=== PATIENT | male | born 1945 | race Caucasian/White ===

== ENCOUNTER 2019-04-08 15:41 | Emergency (ER) | payer MEDICARE, SELFPAY ==
[2019-04-08 15:42] VITALS: BP 115/66; PULSE 63; RESP 16; TEMP 37.5; O2SAT 96; BMI 28.8
--- NOTE | 2019-04-08 16:09 | CT_ITS ---
STUDY: CT ABDOMEN AND PELVIS WITHOUT CONTRAST REASON FOR EXAM: Male, 73 years old. Right lower quadrant pain since colonoscopy. RADIATION DOSAGE (If Supplied By Facility): CTDIvol = ( 12.85 ) mGy, DLP = ( 636.76 ) mGycm TECHNIQUE: Transaxial images were obtained from the dome of the diaphragm to the symphysis pubis without oral contrast, and without intravenous contrast. Sagittal and coronal images were reconstructed. Individualized dose optimization techniques were used for this CT. COMPARISON: None. FINDINGS: There is minimal dependent atelectasis within the lower lobes. There is a 3 mm left lower lobe pulmonary nodule. There are coronary artery calcifications present. The lack of intravenous contrast limits evaluation of solid visceral organs. There are too small to characterize low-attenuation foci within the liver. Normal gallbladder and extrahepatic biliary system. Normal spleen. Normal pancreas. Normal bilateral adrenal glands. There is a 2.2 cm right renal cyst. There is a 8.9 x 7.4 x 7.9 cm minimally complex left renal cyst that contains thin peripheral calcifications. Normal left kidney. Normal visualized stomach. Normal small intestine. Normal colon. The appendix is visualized and appears normal. There is diffuse atherosclerotic calcification of the abdominal aorta, without a demonstrated aneurysm. Normal inferior vena cava. Normal retroperitoneum. Normal urinary bladder. There is a small umbilical hernia containing fat. There are diffuse degenerative changes of the visualized lumbar spine. CT/Abdomen/Pelvis without Cont IMPRESSION: No acute intra-abdominal process. Minimally complex 8.9 x 7.4 x 7.9 cm left renal cyst. Atherosclerosis. Electronically Signed: Genny Mitchell MD at 17:11 EST Tel , Service support ,
--- NOTE | 2019-04-08 16:15 | ED.DCSUM_ITS ---
- ER Visit Summary Date of Service: 04/08/19 Chief Complaint: Abdominal pain, bright red blood per rectum History of Present Illness: The patient is a 73 M who has abdominal pain and had some bright red blood per rectum today. He had a colonoscopy [address] Blake. He states ever since the procedure he has had pain in the right upper quadrant. He was told that he had a polyp removed from this area and that is why he had pain. Today he noticed bright red blood in the toilet 2 times. He is on no blood thinning medications. He does feel lightheaded. He has no nausea or vomiting. He denies any urinary symptoms. Physical Examination: Vital signs reviewed. HEENT exam unremarkable. Heart is regular rate and rhythm without murmurs. Lungs are clear to auscultation. Abdomen is soft with tenderness in the right upper quadrant. There is no guarding or rebound tenderness. Rectal exam reveals no hemorrhoids. No active bleeding. Extremities reveal no edema. Skin exam normal. Neurologic exam normal. Test Results: Hemoglobin 12.1. Labs normal. FOBT positive. CAT scan reveals a renal cyst but no other acute findings Emergency Department Course and Treatment: The patient's blood pressure and heart rate have been normal. His hemoglobin is 12.1. He had no episodes of any large bowel movement of blood here. He had some scant blood on the rectal exam. I discussed with Dr. Skinner, on-call for Dr. Blake. He believes the patient can follow-up on Thursday with Dr. Blake. He was going to pass along a note to follow-up with him. Patient denies any orthostatic symptoms here. Again, his v ital signs have been stable. He has no active bleeding. I feel he can be discharged to follow-up. Treatment Plan: [] Disposition: Discharge Impression: Right red blood per rectum, recent colonoscopy This note was generated with [employer] dictation software. It may contain incorrect words, spelling, and punctuation that were not noted in review of the chart prior to signing ED Disposition - Plan for ED Patient: Referrals: Anais Flores DO [Primary Care Provider] -
[2019-04-08] MEDS: 0.9% Normal Saline 1,000 ML 1000 ML IV (16:40)
[2019-04-08] MEDS: Morphine 4 MG/ML Syringe IV (16:41)
[2019-04-08] MEDS: Ondansetron 4 MG/2 ML Vial IV (16:41)
[2019-04-08 16:45] LABS: Absolute Lymphocyte Count 0.82 X10^3/uL (0.83-4.51); Basophil# 0.03 X10^3/uL; Basophil% 0.4 % (0-1); Eosinophil# 0.24 X10^3/uL; Eosinophils% 3.1 % (0-5); Hemoglobin 12.1 g/dL (13.0-16.5); Lymphocyte # 0.82 X10^3/ul (4.0); Lymphocyte % 10.6 % (19-41); Mean Corp Hgb Conc 34.6 g/dL (32-36); Mean Corpuscular Hgb 30.9 pg (27.0-32.0); Mean Corpuscular Volume 89.5 fL (80-94); Mean Platelet Vol. 11.3 fl (6.2-12.0); Monocyte# 0.59 X10^3/uL; Monocyte% 7.6 % (0-10); NRBC Flagged by Analyzer 0 % (0-5); Neutrophil # 6.01 X10^3/uL (2.7-7.7); Neutrophil % 77.8 % (47-70); Platelet Count 196 K/mm3 (150-450); RBC Distribution Width CV 12.7 % (11.6-14.6); RBC Distribution Width SD 41.3 fl (35.1-43.9); Red Blood Count 3.91 M/mm3 (4.6-6.2); White Blood Count 7.7 K/mm3 (4.4-11.0)
[2019-04-08 16:47] VITALS: BP 126/65; PULSE 80; RESP 19; O2SAT 97
[2019-04-08 17:03] LABS: ALB/GLOB Ratio 1.2 RATIO (0.9-2.4); AST(SGOT) 22 U/L (15-37); Alanine Aminotransfer ALT/SGPT 51 U/L (16-61); Albumin, Serum 3.3 g/dL (3.2-5.0); Alkaline Phosphatase 67 U/L (45-117); Anion Gap 4 (5-15); BUN 17 mg/dL (7-18); BUN/Creat Ratio 19.5 RATIO (10-20); Calcium,Total 8.6 mg/dL (8.5-10.1); Chloride 105 mmol/L (98-107); Creatinine, Serum 0.87 mg/dL (0.70-1.30); EST Glomerular Filtration Rate 92 mL/min (>60); Est Glom Filt Rate - Afr Amer 111 mL/min (>60); Estimated Creatinine Clearance 70.28 ml/min; Globulin 2.7 g/dL (2.2-4.2); Glucose 105 mg/dL (74-106); Potassium 3.8 mmol/L (3.5-5.1); Sodium Level 139 mmol/L (136-145)
[2019-04-08 17:06] VITALS: BP 119/60; PULSE 74; RESP 17; O2SAT 94
--- NOTE | 2019-04-08 17:27 | ED.RN ---
LAB WITH POSITIVE OCCULT BLOOD RESULT. DR KRUEGER NOTIFIED AT THIS TIME.
--- NOTE | 2019-04-08 17:56 | ED.DEP ---
ED Disposition - Plan for ED Patient: Disposition: Home or Assisted Living Instructions: RECTAL BLEED, Stable Referrals: Anais Flores DO [Primary Care Provider] -
[2019-04-08 18:03] VITALS: BP 139/65; PULSE 61; O2SAT 93
== END 2019-04-08 18:08 | disposition home or self-care (01) ==
PROVIDERS: Emergency Provider Emergency Medicine; Family Provider Internal Medicine; PCP Internal Medicine
DX: K62.5 Hemorrhage of anus and rectum (principal); R10.11 Right upper quadrant pain; N28.1 Cyst of kidney, acquired; Z98.890 Other specified postprocedural states
CPT/HCPCS: 74176; 80053; 82274; 85025; 86850; 86900; 86901; 96361; 96374; 96375; 99285; J7030; A4216; J2405

== ENCOUNTER → 2019-09-22 14:50 | Outpatient (CLI) | payer MEDICARE, SELFPAY ==
--- NOTE | 2019-09-22 14:54 | CT_ITS ---
STUDY: CT BRAIN WITH AND WITHOUT CONTRAST REASON FOR EXAM: Male, 74 years old. RT OCCIPITAL PAIN X 2 WKS RADIATION DOSAGE (If Supplied By Facility): CTDIvol = ( ) mGy, DLP = ( 4529.85 ) mGycm TECHNIQUE: Transaxial CT imaging of the brain was performed pre and post contrast administration. The examination was performed with intravenous administration of IV 100mL Isovue-300. Individualized dose optimization techniques were used for this CT. COMPARISON: None. FINDINGS: Normal soft tissue structures. Normal calvarium. Mild calcification of cavernous carotids and vertebrobasilar dolichoectasia consistent with systemic hypertension Mild atrophy and periventricular white matter ischemic changes.. Normal basal ganglia and thalami. Normal brainstem. Normal cerebellum. There is no intracranial hemorrhage. There are no findings of an acute ischemic infarction. No enhancing lesions are seen following contrast administration. Normal visualized paranasal sinuses. CT/Brain/Head W/WO Contrast IMPRESSION: Mild atrophy and periventricular white matter ischemic change. No evidence for obstructive hydrocephalus mass or acute bleed Electronically Signed: Ghassan Moses MD at 16:06 EDT , Service support ,
--- NOTE | 2019-09-22 14:54 | CT_ITS ---
STUDY: CT ABDOMEN AND PELVIS WITH AND WITHOUT CONTRAST REASON FOR EXAM: Male, 74 years old. COMPLEX RENAL CYST RADIATION DOSAGE (If Supplied By Facility): CTDIvol = ( ) mGy, DLP = ( 4529.85 ) mGycm TECHNIQUE: Transaxial images were obtained from the dome of the diaphragm to the symphysis pubis without oral contrast. IV 100mL Isovue-300 was administered. Sagittal and coronal images were reconstructed. Individualized dose optimization techniques were used for this CT. COMPARISON: April 08, 2019 FINDINGS: There is minor interstitial thickening at the lung bases The visualized portions of the heart are within normal limits. Liver is normal size. There is a small hemangioma in the right lobe posterior segment. Bile ducts are not dilated. Normal gallbladder and extrahepatic biliary system. Normal spleen. Normal pancreas. Normal bilateral adrenal glands. No evidence for renal obstruction or ureteral calculus. Single cortical cyst in the right kidney measuring 2.6 x 2.37 m There is a large parapelvic cyst in left kidney measuring 9.68 x 8.04 x 8.47 cm demonstrating foci of thin rim calcification. Normal visualized stomach. Normal small intestine. Diffuse fecal retention noted within the colon.. The appendix is visualized and appears normal. Atherosclerotic changes of the aorta without evidence for aneurysm.. Normal inferior vena cava. Normal retroperitoneum. Normal urinary bladder. Nonspecific enlargement of the prostate and seminal vesicles encroaching upon the base of the bladder. Small bilateral fat-containing inguinal hernias larger on the left.. Lumbar spine demonstrates mild spondylosis CT/CT Abd/Pelvis W/WO Contrast IMPRESSION: Large complex cortical cyst in left kidney measuring 1.68 x 8.04 x 8.47 cm Small simple cortical cyst in the right kidney No acute abnormalities with other findings as above Electronically Signed: Ghassan Moses MD at 16:13 EDT , Service support ,
[2019-09-22 15:21] LABS: CREATININE FINGERSTICK 0.8 mg/dL (0.70-1.30)
== END ==
PROVIDERS: PCP Internal Medicine; Visit Provider Nurse Practitioner
DX: R51 Headache (principal); N28.1 Cyst of kidney, acquired; Z68.27 Body mass index [BMI] 27.0-27.9, adult
CPT/HCPCS: 70470; 74178; Q9967

== ENCOUNTER → 2019-10-07 09:43 | Outpatient (CLI) | payer MEDICARE, SELFPAY ==
--- NOTE | 2019-10-07 09:47 | MRI_ITS ---
STUDY: MRI BRAIN WITHOUT CONTRAST REASON FOR EXAM: Male, 74 years old. throbbing headache, rt side of head x 5 weeks TECHNIQUE: Standardized multiplanar fat and water weighted pulse sequences were obtained. COMPARISON: CT 09/22/2019 FINDINGS: There is mild cerebral atrophy with widening of the extra-axial spaces and ventricular dilatation. Normal white matter tracts of the supratentorial brain. There is no evidence for recent intracranial ischemia or other cause of cytotoxic edema on diffusion weighted imaging (DWI). Normal T2* images of the brain without demonstrated susceptibility artifact. There is no demonstrated hemosiderin stain. Normal bilateral basal ganglia. Normal thalami. There is no extra-axial fluid accumulation. Normal flow voids within the major intracranial circulation suggesting patency by spin echo criteria. Normal sella turcica, pituitary gland, infundibular stalk, optic chiasm and hypothalamus. Normal tectal plate and pineal gland. Normal midbrain, zach and medulla. Normal cerebellum. Normal basal cisterns. Normal bilateral temporal bones. Normal bilateral internal auditory canals. No demonstrated orbital abnormality, within the constraints of a routine brain study. Normal visualized paranasal sinuses. Normal calvarium and skull base. Normal visualized soft tissue structures. Normal visualized upper cervical spine. MRI/Brain without Contrast IMPRESSION: Involutional changes of the brain, as described above. Electronically Signed: Bassem Cooley MD at 10:51 EDT Tel , Service support ,
--- NOTE | 2019-10-07 10:57 | CDU_ITS ---
Reason For Study: carotid artery calcification Rt. Velocities/BP Lt. Velocities/BP Prox CCA 108.9/17.5 cm/sec. Prox CCA 102.7/20.4 cm/sec. Mid CCA 97.9/19.4 cm/sec. Mid CCA 87.9/20.4 cm/sec. Dist CCA 77.8/21.2 cm/sec. Dist CCA 81.8/17.9 cm/sec. Prox ICA 91.1/23.6 cm/sec. Prox ICA 66.2//18.3 cm/sec. Mid ICA 89.3/30.9 cm/sec. Mid ICA 87.1/26.9 cm/sec. Dist ICA 102.1/29.0 cm/sec. Dist ICA 99.4/29.4 cm/sec. Rt. ICA/CCA = 102.1/108.9=0.94. Lt. ICA/CCA = 99.4/102.7=0.97. Prox ECA 143.6/15.7 cm/sec. Prox ECA 119.3/13.3 cm/sec. Rt. Vert. 61.4/19.7 cm/sec. Lt. Vert. 71.1/18.3 cm/sec. Right Extracranial There is intimal thickening but no significant atherosclerotic plaque noted in the right common carotid artery. There is homogeneous, smooth atherosclerotic plaque noted in the right internal carotid artery. There is intimal thickening but no significant atherosclerotic plaque noted in the right external carotid artery. Antegrade flow is noted in the right vertebral artery. Left Extracranial There is homogeneous, smooth atherosclerotic plaque noted in the left common carotid artery. There is intimal thickening but no significant atherosclerotic plaque noted in the left internal carotid artery. There is intimal thickening but no significant atherosclerotic plaque noted in the left external carotid artery. The left external carotid artery is not well visualized. Antegrade flow is noted in the left vertebral artery. Interpretation Summary Mild (<50%) stenosis right extracranial internal carotid. No significant atherosclerotic plaque or stenosis noted in the left internal carotid artery. Flow within the vertebral arteries is antegrade bilaterally. Ordering Physician: Fide Fishman Referring Physician: Anais Flores Performed By: Evy Shafer, JES, RVT
== END ==
PROVIDERS: PCP Internal Medicine; Visit Provider Nurse Practitioner
DX: I65.1 Occlusion and stenosis of basilar artery (principal); I65.23 Occlusion and stenosis of bilateral carotid arteries
CPT/HCPCS: 70551; 93880

== ENCOUNTER → 2019-10-11 14:30 | Outpatient (CLI) | payer MEDICARE, SELFPAY ==
[2019-10-12 08:24] LABS: PSA,Total- Diagnostic 8.97 ng/mL (0.0-4.0)
== END ==
PROVIDERS: PCP Internal Medicine; Referring Provider Nurse Practitioner Adult Health; Visit Provider Nurse Practitioner Adult Health
DX: C61 Malignant neoplasm of prostate (principal)
CPT/HCPCS: 36415; 84153; G0103

== ENCOUNTER → 2019-11-29 15:46 | Outpatient (CLI) | payer MEDICARE, SELFPAY ==
--- NOTE | 2019-11-29 | PROSBIL_PTH ---
PATIENT: JASON VERDUZCO LOC: [facility] U#:[id number] AGE/SX: 79/M ROOM: RE11/29/[address]: Dr. Elvin Acevedo MD : 1945 BED: DIS: SPEC #: [id number] RECD: 11/29/19 12:12 STATUS: ESTEFANIA REFamilia #: [id number] CHAI: 11/29/19 00:[address]: Elvin Acevedo DEPT: SURGICAL PATHOLOGY RECD BY: Arron Hamm ENTERED: 11/30/19 12:12 SP TYPE: PROST BX GABINO DR: Dr. Anais Flores DO Tissues: A - PROSTATE RIGHT B - PROSTATE RIGHT C - PROSTATE RIGHT D - PROSTATE LEFT E - PROSTATE LEFT F - PROSTATE LEFT Procedures: PROSTATE BX HEADER OPERATION: Prostate biopsy PRE-OP DIAGNOSIS: Elevated PSA TISSUE SUBMITTED: A - Right apex, B - Right mid, C - Right base, D - Left apex, E - Left mid, F - Left base MICROSCOPIC DIAGNOSIS A. Right prostate, apex, core biopsy: Prostatic adenocarcinoma. [place] grade: 3+4=7 Number of cores involved: 1/2 Proportion of tissue involved: ~40% Perineural invasion: Present, focal Greatest tumor length: 0.7 cm Focal high-grade prostatic intraepithelial neoplasia (HGPIN). B. Right prostate, mid, core biopsy: Prostatic adenocarcinoma. [place] grade: 3+4=7 Number of cores involved: 2/2 Proportion of tissue involved: ~75-80% Perineural invasion: Present, frequent. Greatest tumor length: 0.8 cm Focal chronic inflammation. C. Right prostate, base, core biopsy: Prostatic adenocarcinoma. [place] grade: 3+4=7 Number of cores involved: 1/2 Proportion of tissue involved: ~10% Perineural invasion: Present, focal. Greatest tumor length: 0.7 cm, discontinuous Focal high-grade prostatic intraepithelial neoplasia (HGPIN). Focal chronic inflammation. See comment. D. Left prostate, apex, core biopsy: Two minute foci of prostatic adenocarcinoma. [place] grade: 3+3=6 Number of cores involved: 2/2 Proportion of tissue involved: <5% Perineural invasion: Not identified. Greatest tumor length: <0.1 cm See comment. E. Left prostate, mid, core biopsy: Prostatic adenocarcinoma. [place] grade: 3+3=6 Number of cores involved: 1/2 Proportion of tissue involved: ~15% Perineural invasion: Not identified. Greatest tumor length: 0.3 cm Focal mild chronic inflammation. F. Left prostate, base, core biopsy: Prostatic tissue, negative for malignancy. SJ:reji 12/01/19 COMMENT C. Focal tertiary pattern 5 is also noted. D. Immunohistochemistry ([id number]) supports the above diagnosis. Please make reference to previous specimen ([id number]) right prostate, mid and left prostate, apex with diagnosis of prostatic adenocarcinoma and right prostate, apex and left prostate, base, core biopsy with diagnosis of focal high-grade prostatic intraepithelial neoplasia. Case has been reviewed in consultation with Dr. Gomez who concurs with the above diagnosis. IDC:AM MICROSCOPIC DESCRIPTION Slides are reviewed. GROSS DESCRIPTION A - Received is one container designated prostate, right apex. The specimen consists of two elongated fragments of light paredes-white soft tissue each measuring 1 cm in length and 0.1 cm in diameter. The specimen is totally submitted in one cassette. B - Received is one container designated prostate, right mid. The specimen consists of two elongated fragments of light paredes-white soft tissue each measuring 1.5 cm in length and 0.1 cm in diameter. The specimen is totally submitted in one cassette. C - Received is one container designated prostate, right base. The specimen consists of two elongated fragments of light paredes-white soft tissue each measuring 1.5 cm in length and 0.1 cm in diameter. The specimen is totally submitted in one cassette. D - Received is one container designated prostate, left apex. The specimen consists of two elongated fragments of light paredes-white soft tissue each measuring 1 cm in length and 0.1 cm in diameter. The specimen is totally submitted in one cassette. E - Received is one container designated prostate, left mid. The specimen consists of two elongated fragments of light paredes-white soft tissue each measuring 1 cm in length and 0.1 cm in diameter. The specimen is totally submitted in one cassette. F - Received is one container designated prostate, left base. The specimen consists of two elongated fragments of light paredes-white soft tissue each measuring 1.5 cm in length and 0.1 cm in diameter. The specimen is totally submitted in one cassette. / AM:reji 11/30/19 TC:0 CPT: G0146
--- NOTE | 2019-11-29 | IMM_PTH ---
PATIENT: JASON VERDUZCO LOC: [facility] U#:[id number] AGE/SX: 79/M ROOM: RE11/29/[address]: Dr. Elvin Acevedo MD : 1945 BED: DIS: SPEC #: [id number] RECD: 12/01/19 13:02 STATUS: ESTEFANIA REFamilia #: [id number] CHAI: 11/29/19 00:[address]: Elvin Acevedo DEPT: IMMUNOHISTOCHEMISTRY RECD BY: Sena Fam ENTERED: 12/01/19 13:11 SP TYPE: IMMUNO OTHR DR: Dr. Anais Flores DO Tissues: D - PROSTATE LEFT Procedures: P40 (add) 34BE12 (initial) PHYSICIAN & INSTITUTION [place] [id number] SPECIMEN INFORMATION: Tissue Source: D - Left prostate, apex, core biopsy Clinical Info: Elevated PSA Specimen Number: [id number] CPT code: 73741, 65743 METHODOLOGY: Deparaffinized sections of prefer/formalin-fixed tissue or PAP/DQ stained slides are incubated with monoclonal/polyclonal antibodies/oligonucleotide probes. Localization is made via biotin free immunoperoxidase method. Appropriate controls are performed and reacted as expected. Results on target cell population are indicated in the following table: RESULTS: ANTIBODY / CLONE RESULT Block D P40 (BC28) negative 34BE12 (34BE12) negative These tests were developed and their performance characteristics determined by [facility]. They may not have been cleared or approved by the U.S. Food and Drug Administration. The FDA has determined that such clearance or approval is not necessary. The above immunohistochemical/dualISH markers are ordered and reviewed by the Pathologist. INTERPRETATION: D. Left prostate, apex, core biopsy: Two minute foci of adenocarcinoma. SJ:reji 12/02/19
== END ==
PROVIDERS: PCP Internal Medicine; Referring Provider Urology; Visit Provider Urology
DX: R97.20 Elevated prostate specific antigen [PSA] (principal)
CPT/HCPCS: 88305; 88341; 88342; G0416

== ENCOUNTER → 2019-12-30 11:00 | Outpatient (CLI) | payer MEDICARE, SELFPAY ==
[2020-02-02 09:26] LABS: Hematocrit 43.7 % (40-54); Hemoglobin 14.9 g/dL (13.0-16.5); Mean Corp Hgb Conc 34.1 g/dL (32-36); Mean Corpuscular Hgb 30.7 pg (27.0-32.0); Mean Corpuscular Volume 89.9 fL (80-94); Mean Platelet Vol. 10.5 fl (6.2-12.0); Platelet Count 206 K/mm3 (150-450); RBC Distribution Width CV 12.5 % (11.6-14.6); RBC Distribution Width SD 41.1 fl (35.1-43.9); Red Blood Count 4.86 M/mm3 (4.6-6.2); White Blood Count 5.3 K/mm3 (4.4-11.0)
== END ==
PROVIDERS: Anesthesiology; PCP Internal Medicine; Referring Provider Urology; Visit Provider Urology
DX: Z01.810 Encounter for preprocedural cardiovascular examination (principal); Z01.812 Encounter for preprocedural laboratory examination; Z20.828 Contact with and (suspected) exposure to other viral communicable diseases
CPT/HCPCS: 36415; 85027; 86850; 86900; 86901; 87635; 93005; C9803; U0003

== ENCOUNTER → 2020-01-20 17:10 | Outpatient (CLI) | payer MEDICARE, SELFPAY | PROVIDERS: Anesthesiology; PCP Internal Medicine; Referring Provider Internal Medicine; Visit Provider Internal Medicine | DX: Z20.828 Contact with and (suspected) exposure to other viral communicable diseases (principal) | CPT/HCPCS: 87635; C9803; U0003 ==

== ENCOUNTER → 2020-02-06 09:40 | Outpatient (CLI) | payer MEDICARE, SELFPAY ==
[2020-02-03 12:41] VITALS: BMI 26.9
--- NOTE | 2020-02-06 09:43 | STE_ITS ---
Reason For Study: ARRHYTHMIA-OTHER Stress Results Protocol: Romero Protocol Maximum Predicted HR: 148 bpm Target HR: 126 bpm % Maximum Predicted HR: 94 % DurationHeart Rate Stage (mm:ss) (bpm) BP BASELINE 53 152/78 STAGE 1 3:00 97 190/84 STAGE 2 3:00 121 210/90 STAGE 3 3:00 139 218/80 RECOVERY 68 140/80 Stress Duration: 9:00 mm:ss Maximum Stress HR: 139 bpm Baseline Echocardiogram Findings Stress Echo Wall motion Data Resting WM Intermediate WM Stress WM Interpretation Summary Exercise stress echo. 74-year-old man with a history of chest pain. Stress protocol: Resting EKG demonstrates normal sinus rhythm with a rate of 58 bpm normal intervals are noted resting blood pressure is 152/78 mmHg. The patient exercised according to regular Romero protocol for a total duration of 9 minutes. The maximum heart rate attained was 139 bpm which was 93% of max impacted heart rate the maximum workload was 10.1 metabolic equivalents. At rest there were no ST or T wave changes noted to suggest ischemia at peak exercise upsloping ST changes only were noted we did not meet the criteria for ischemia. No clinical angina was noted. The test was terminated due to target heart rate being achieved. The peak blood pressure was 218/80 mmHg. Stress echocardiogram. The resting echocardiogram demonstrated preserved ejection fraction of 55% no wall motion abnormalities were noted. The patient exercised according to the regular Romero protocol for 9 minutes. The peak stress images demonstrated an ejection fraction of 65%. No wall motion abnormalities were noted. Conclusion: Exercise stress echo with no EKG criteria for ischemia. Stress echocardiographic images which are normal at a high workload.. Ordering Physician: Nabil Cage Referring Physician: Nabil Cage Performed By: Chyna Duncan RDCS
== END ==
PROVIDERS: PCP Internal Medicine; Referring Provider Internal Medicine Cardiovascular Disease; Visit Provider Internal Medicine Cardiovascular Disease
DX: R94.31 Abnormal electrocardiogram [ECG] [EKG] (principal); Z01.810 Encounter for preprocedural cardiovascular examination
CPT/HCPCS: 93017; 93350

== ENCOUNTER 2020-02-08 05:32 | Day surgery (SDC) | payer MEDICARE, SELFPAY ==
[2020-02-03 12:41] VITALS: BMI 26.9
[2020-02-08] VITALS (13 sets, daily range): BP systolic 112–136; BP diastolic 58–85; PULSE 58–80; RESP 16–18; TEMP 36.6–37.1; O2SAT 93–98; BMI 26.2; BMI 26.3
[2020-02-08] MEDS: Lactated Ringers 1,000 ML 100 ML IV ×2 (06:39→06:41)
--- NOTE | 2020-02-08 07:30 | BLA_PTH ---
PATIENT: JASON VERDUZCO LOC: [facility] U#:[id number] AGE/SX: 74/M ROOM: RE02/08/[address]: Dr. Elvin Acevedo MD : 1945 BED: DIS: 02/09/2020 SPEC #: [id number] RECD: 02/08/20 08:53 STATUS: ESTEFANIA REFamilia #: [id number] CHAI: 02/08/20 07:[address]: Elvin Acevedo DEPT: SURGICAL PATHOLOGY RECD BY: Sena Fam ENTERED: 02/08/20 09:33 SP TYPE: BLADDER BX OTHR DR: Dr. Anais Flores DO Tissues: A - Urinary bladder, NOS B - Lymph node, NOS C - Lymph node, NOS D - Prostate, NOS Procedures: Frozen Section (charge) Surgery Specimen Level IV Surgery Specimen Level V Surgery Specimen Level HEADER OPERATION: Laparoscopic robotic radical prostatectomy PRE-OP DIAGNOSIS: Malignant neoplasm of prostate; elevated PSA TISSUE SUBMITTED: A - Bladder neck margin, FS at 0850, B - Right pelvic lymph node, C - Left pelvic lymph node, D - Prostate FROZEN SECTION DIAGNOSIS A. Bladder neck margin, biopsy: No evidence of carcinoma. AM:reji 02/08/20 MICROSCOPIC DIAGNOSIS A. Urinary bladder neck margin, biopsy: No evidence of carcinoma. B. Right pelvic lymph nodes, regional lymphadenectomy: Four out of four lymph nodes negative for carcinoma. C. Left pelvic lymph nodes, regional lymphadenectomy: One out of one lymph node negative for carcinoma. D. Prostate, radical prostatectomy: Invasive adenocarcinoma. See cancer checklist below. AM:reji 02/10/20 COMMENT PROSTATE CANCER (RADICAL) SUMMARY: Procedure: Radical Prostatectomy Prostate Size: 4.5 x 4.2 x 4 cm Histologic type: Adenocarcinoma Histologic grade: 7 (3+4) (group 2) Percent of Pattern 4: 25% Percent of Pattern 5: 0 Intraductal Carcinoma: Not identified Tumor Quantitation: (from glass slides) 3.5 x 2 x 1 cm Extraprostatic Extension: Focally present, adjacent to base of prostate. Urinary Bladder Neck Invasion: Not identified Seminal Vesicle Invasion: Not identified Lymphovascular Invasion: Present, frequent Margins: distal urethral(apical) and cranial (base) positive for carcinoma. Regional Lymph Nodes: 5 out of 5 lymph nodes negative for carcinoma (see specimens B & C)> Treatment Effect: Unknown Additional Pathologic Findings: Benign nodular hyperplasia and chronic inflammation. PATHOLOGIC STAGE: T3 N0 Mx The above summary is in compliance with [employer] [place] Pathology (CAP) Cancer Protocols Checklist and [place] Joint Committee on Cancer (AJCC), Staging Manual, 8th Ed. Case has been reviewed in consultation with Dr. Morillo who concurs with the above diagnosis. IDC:SJ MICROSCOPIC DESCRIPTION Slides are reviewed. GROSS DESCRIPTION A - Received fresh for frozen section consultation/diagnosis labeled with the patient's name is a specimen designated bladder neck margin. The specimen consists of an irregular fragment of pink-paredes soft tissue measuring 1 x 1 x 0.2 cm. The specimen is submitted in its entirety for froze section consultation in one block. / AM: 02/08/20 B - Received in fixative is one container labeled with the patient's name and designated right pelvic lymph nodes. The specimen consists of an irregular fragment of paredes-yellow fatty tissue measuring 3.5 x 2.5 x 0.7 cm. Dissection reveals two nodules ranging in size from 1.3 to 2 cm. The nodules are bisected and totally submitted in two cassettes as follows: 1 - nodule, 2 - the other nodule. / AM: 02/08/20 C - Received in fixative is one container labeled with the patient's name and designated left pelvic lymph nodes. The specimen consists of three irregular fragments of paredes-yellow fibrofatty tissue measuring in aggregate 3 x 2 x 0.3 cm. The specimen is submitted in its entirety in one cassette. / AM: 02/08/20 D - Received in fixative is one container labeled with the patient's name and designated prostate. The specimen consists of a radical prostatectomy specimen consisting of prostate and bilateral seminal vesicles. The specimen weighs 75 gm. It measures 4.5 cm transversely, 4.2 cm craniocaudally and 4 cm anterior-posteriorly. The prostate is differentially inked as follows: anterior - red, right half - blue, left half - green and entire posterior surface - black. Serial sections do not reveal distinct mass lesions. Finishing Technician sections are submitted as follows: 1 - distal urethral shaved margin, 2 - bladder shave margin, 3 - right and left seminal vesicles, 4 & 5 - most basal section, 6-8 - apex, 9-14 - mid portion of prostate, 15-20 - basal portion of prostate. / AM:reji 02/09/20 TC:0 CPT: 31620, 03714 x2, 12080, 92991
[2020-02-08] MEDS: Cefazolin 2 GM in 0.9% Normal Saline 100 ML IV (07:38)
[2020-02-08] MEDS: Bupivacaine Mpf 0.5% 30 ML VIAL (11:15)
--- NOTE | 2020-02-08 11:26 | PCM.HP.STD ---
Problem List (1) Prostate cancer Status: Acute History of Present Illness Date of Admission: 02/08/20 Chief Complaint: Prostate cancer The patient is a 74 year old male with prostate cancer is elected to undergo radical prostatectomy. Past Medical History Past Medical History (Chronic Problems): Chronic Problems (Last Reviewed 02/03/20 @ 13:[address] Nabil Cage MD) Essential (primary) hypertension (Chronic) Hyperlipidemia (Chronic) Medical History: Medical History (Last Reviewed 02/03/20 @ 13:[address] Nabil Cage MD) Abnormal electrocardiogram (Acute) R94.31 Preop cardiovascular exam (Acute) Z01.810 Prostate cancer (Acute) C61 Essential (primary) hypertension (Chronic) I10 Hyperlipidemia (Chronic) E78.5 Carotid artery calcification I65.29 Allergies No Known Allergies Allergy (Verified 02/08/20 06:08) Home Medications: Ambulatory Orders Medication Instructions Recorded amlodipine 10 mg tablet 10 mg PO DAILY #90 tab 02/03/20 Biotin 1 mg PO DAILY 02/06/20 Ferney Oil 1,000 mg PO DAILY 02/06/20 Vitamin B Complex/Folic Acid 0.4 mg PO DAILY 02/06/20 [Super B Maxi Complex Caplet] Ciprofloxacin [Cipro] 500 mg PO BID #14 tab 02/08/20 Docusate Sodium [Colace] 100 mg PO BID #20 cap 02/08/20 Hydrocodone/Acetaminophen [[place] 1 each PO Q4H PRN PRN 7 Days #14 02/08/20 5-325 Tablet] tablet Surgical History: Surgical History (Last Reviewed 02/03/20 @ 13:[address] Nabil Cage MD) H/O wrist surgery Z98.890 History of colonoscopy with polypectomy Z98.890, Z86.010 History of shoulder surgery Z98.890 History of vasectomy Z98.52 Surgical History: no surgical history Smoking Status: Former smoker Tobacco Use: Non-smoker VTE Information - Inpt Only VTE Present on Admission: No - Physical Exam Vitals/I&O's: Vital Signs Temp Pulse Resp BP Pulse Ox 98.2 F 59 L 18 119/85 H 97 02/08/20 06:10 02/08/20 06:10 02/08/20 06:10 02/08/20 06:02/08/20 06:10 Oxygen Delivery Method Room Air Weight: 73.8 kg Body Mass Index (BMI) 26.2 Intake and Output for Last 24 Hours 02/06/20 02/07/20 02/08/20 23:59 23:59 23:59 Intake Total 110 / 110 Output Total 150 / 150 Balance -40 / -40 General: Alert, Oriented x3, Cooperative HEENT: Atraumatic, PERRLA, EOMI, Normocephalic Neck: Supple, No JVD, Negative Carotid Bruits Lungs: Clear to auscultation, Normal air movement Cardiovascular: Regular rate, No murmurs Abdomen: Bowel Sounds Present, Soft, Non Tender Extremities: No edema, Capillary Refill Less than 3 Seconds Skin: No rashes, No breakdown Musculoskeletal: No Tenderness to Palpation of Joints or Extremities Neurological: Cranial nerves II-XII grossly intact Psych/Mental Status: Normal Affect, Appropriate Current Medications Lactated Ringer's () 1,000 mls @ 100 mls/hr IV .Q10H [facility] Last Admin: 02/08/20 06:39 Dose: 100 mls/hr Documented by: Lactated Ringer's () 1,000 mls @ 100 mls/hr IV .Q10H [facility] Last Admin: 02/08/20 06:41 Dose: 100 mls/hr Documented by: Assessment/Plan All Active Problems (Last Reviewed 02/03/20 @ 13:[address] Nabil Cage MD) Abnormal electrocardiogram (Acute) Preop cardiovascular exam (Acute) Prostate cancer (Acute) Plan to proceed with laparoscopic robotic assisted radical prostatectomy with bilateral nerve sparing.
--- NOTE | 2020-02-08 11:27 | PCM.DC.URO ---
Discharge Diet: Light diet - advance as tolerated Discharge Activity: May not drive while taking narcotic pain medications., May Shower Return to work on:: 03/21/20 Call your doctor if your incision/area has: Continuous Slow Oozing, Sudden Increased Bleeding, Increased Pain/ Swelling, Increased Redness, Foul Smelling Discharge, Swelling at the incision site Suture Line Care: Avoid Pulling/Pushing, Avoid Pinching/Bending Catheter: López to leg bag, López to large bag Drain: [place] Instructions: Radical Prostatectomy Allergies/Adverse Reactions: Allergies No Known Allergies Allergy (Verified 02/08/20 06:08) Medications to take at Discharge amlodipine 10 mg tablet 10 mg PO DAILY #90 tab 02/03/20 Biotin 1 mg PO DAILY 02/06/20 [place] Oil 1,000 mg PO DAILY 02/06/20 Vitamin B Complex/Folic Acid [Super B Maxi Complex Caplet] 0.4 mg PO DAILY 02/06/20 Ciprofloxacin [Cipro] 500 mg PO BID #14 tab 02/08/20 Docusate Sodium [Colace] 100 mg PO BID #20 cap 02/08/20 Hydrocodone/Acetaminophen [[place] 5-325 Tablet] 1 each PO Q4H PRN PRN 7 Days #14 tablet 02/08/20 The following prescriptions were given: Ciprofloxacin [Cipro] 500 mg PO BID #14 tab Transmission Status: Pending to [facility] Docusate Sodium [Colace] 100 mg PO BID #20 cap Transmission Status: Pending to [facility] Hydrocodone/Acetaminophen [[place] 5-325 Tablet] 1 each PO Q4H PRN PRN 7 Days #14 tablet PRN Reason: Pain Score 1-10/10 Transmission Status: Sent to [facility] Primary Care Physician: Anais Flores DO [Primary Care Provider] - Test Results: Test results from this visit will be discussed in further detail at your follow-up appointment, if applicable. Please Follow Up With: Elvin Acevedo MD When: please call to make an appointment. 10 days
--- NOTE | 2020-02-08 11:28 | PCM.OPRPT ---
Problem List (1) Prostate cancer Status: Acute Report of Operation Date of Procedure: 02/08/20 Pre-Operative Diagnosis: Prostate cancer Post-Operative Diagnosis: Prostate cancer and umbilical hernia Surgery/Procedure Performed:: Laparoscopic robotic assisted radical prostatectomy with bilateral nerve sparing. Bilateral pelvic lymph node dissection complete. Repair of umbilical hernia Description of Surgical Findings:: 74-year-old male was taken back to the operating room at the smooth induction of general anesthesia he was placed supine on the table the penis and testicles were shaved prepped and draped in usual sterile fashion as well as the abdomen. On inspection he had a umbilical hernia with no fascia in his umbilicus. Infiltrated the skin with lidocaine made a small incision in the skin used a Veress needle to into the peritoneal cavity filled the peritoneal cavity CO2 gas I then placed the 8 mm trocar at the umbilicus right arm trocar into left arm trochars for the robot air seal port and then a 6 suction port for the advertising sales assistant. We then docked the robot I then dropped the bladder created the space of Retzius with the bladder on traction we then went to the right side of the pelvis identified the iliac vein iliac artery lateral pelvic wall the noted Levar we operated identified the gas generator operator nerves were dissected all the lymph node tissue off the lateral pelvic wall we used clips to control for bleeding and for lymphatic drainage and once a lymph node packet was removed this was sent off as a specimen as a permanent specimen. We went then to the left side in the same complete lymph node dissection the left side identifying the anatomical structures as described. I then went to the prostate we dissected the endopelvic fascia in the right and left side we transected dorsal vein complex and stitched this with stitch then pulled back between the junction of the bladder and the prostate dissected between the bladder and prostate down to the seminal vesicles seminal vesicles were then identified and transected and the vas deferens were also identified and transected and pulled up we then went to the right side we came to the pedicle of the prostate and the right side we then released the neurovascular bundle on the right side all the way up along the bottom side of the prostate all the way to the apex. We then went to the left side and came through the vascular pedicle on the left side with clips and then released the neurovascular bundle on the bottom side the prostate and the left side all the way up to the apex we then transected to the dorsal vein complex placed an extra stitch to control bleeding and transected to the urethra. Then the prostate was placed in Endo Catch bag. We then reconstructed the bladder neck because it was Y bladder neck from the dissection. Once the bladder neck was reconstructed anastomosis was then carried out between the bladder neck and the urethra over a catheter with running 3-year-old V lock stitches once this was completed anastomosis was finished then the prostate was extracted by opening up the umbilicus site we undocked the robot we closed the air seal port with a Joe Kilpatrick stitch all the other four 3 mm ports and left unclosed since her small and then after extracting the prostate to the umbilicus we then reapproximated the umbilicus with a running 0 PDS to close the umbilical hernia we then closed all the incisions with stitches patient's anesthetic was reversed was taken back to the PACU in good condition. Type of Anesthesia:: General Drains: morrissey - Admit VTE Documentation VTE Present on Admission: No VTE Mechan Device Prophylaxis: SCD's
[2020-02-08] MEDS: Ketorolac 15 MG/ML Vial IV ×2 (12:36→17:59)
[2020-02-08] MEDS: 0.45% Normal Saline 1,000 ML 125 ML IV (14:00)
[2020-02-08] MEDS: Ciprofloxacin 400 MG/200 ML BAG 200 MG IV (15:37)
[2020-02-08] MEDS: oxyCODONE 5 MG Tablet PO ×2 (15:38→20:06)
[2020-02-08] MEDS: Docusate Sodium 100 MG Capsule PO (21:44)
[2020-02-08] MEDS: Acetaminophen 500 MG Tablet PO (21:44)
[2020-02-09] MEDS: 0.45% Normal Saline 1,000 ML 125 ML IV (00:16)
[2020-02-09] MEDS: Ketorolac 15 MG/ML Vial IV ×3 (00:16→11:18)
[2020-02-09 01:27] VITALS: BP 108/64; PULSE 58; RESP 16; TEMP 36.9; O2SAT 96
[2020-02-09 01:28] VITALS: BMI 26.3
[2020-02-09] MEDS: Ciprofloxacin 400 MG/200 ML BAG 200 MG IV (04:21)
[2020-02-09 04:30] VITALS: BP 104/57; PULSE 56; RESP 16; TEMP 36.8; O2SAT 93
[2020-02-09] MEDS: oxyCODONE 5 MG Tablet PO (04:31)
[2020-02-09 04:40] VITALS: BMI 26.3
[2020-02-09] MEDS: Enoxaparin 40 MG/0.4 ML Syringe SC (06:18)
[2020-02-09 06:37] LABS: Hematocrit 29.6 % (40-54); Mean Corp Hgb Conc 33.8 g/dL (32-36); Mean Corpuscular Hgb 31.1 pg (27.0-32.0); Mean Corpuscular Volume 91.9 fL (80-94); Mean Platelet Vol. 11.5 fl (6.2-12.0); Platelet Count 173 K/mm3 (150-450); RBC Distribution Width CV 12.7 % (11.6-14.6); RBC Distribution Width SD 42.8 fl (35.1-43.9); Red Blood Count 3.22 M/mm3 (4.6-6.2); White Blood Count 8.5 K/mm3 (4.4-11.0)
[2020-02-09 07:07] LABS: Anion Gap 6 (5-15); BUN 19 mg/dL (7-18); BUN/Creat Ratio 18.6 RATIO (10-20); Calcium,Total 8.7 mg/dL (8.5-10.1); Chloride 101 mmol/L (98-107); Creatinine, Serum 1.02 mg/dL (0.70-1.30); EST Glomerular Filtration Rate 76 mL/min (>60); Est Glom Filt Rate - Afr Amer 92 mL/min (>60); Estimated Creatinine Clearance 59.07 ml/min; Glucose 126 mg/dL (74-106); Potassium 3.9 mmol/L (3.5-5.1); Sodium Level 133 mmol/L (136-145)
[2020-02-09 07:42] VITALS: BP 94/50; PULSE 57; RESP 18; TEMP 36.9; O2SAT 93
[2020-02-09 09:35] VITALS: BP 106/58; PULSE 57; RESP 18; TEMP 37.1; O2SAT 92
[2020-02-09] MEDS: Magnesium Hydroxide 30 ML UDC 15 ML PO (09:39)
[2020-02-09] MEDS: Docusate Sodium 100 MG Capsule PO (09:39)
[2020-02-09] MEDS: amLODIPine 10 MG Tablet PO (09:39)
[2020-02-09] MEDS: Pantoprazole Sodium 20 MG Tablet PO (09:39)
[2020-02-09] MEDS: 0.9% Saline Lock 10 ML Syringe IV (11:18)
[2020-02-09 12:50] VITALS: BP 107/59; PULSE 51; RESP 16; TEMP 37.1; O2SAT 94
== END 2020-02-09 13:30 | disposition home or self-care (01) ==
LOC: SDC 05:33 → AC 05:34 → MS3 11:57
PROVIDERS: PCP Internal Medicine; Referring Provider Urology; Visit Provider Urology
PROC: 0VT04ZZ Resection of Prostate, Percutaneous Endoscopic Approach (ICD-10-PCS; CPT 55866; principal; 2020-02-08 07:10)
DX: C61 Malignant neoplasm of prostate (principal); R97.20 Elevated prostate specific antigen [PSA]; K42.9 Umbilical hernia without obstruction or gangrene; I65.29 Occlusion and stenosis of unspecified carotid artery; I10 Essential (primary) hypertension; E78.5 Hyperlipidemia, unspecified; Z79.82 Long term (current) use of aspirin; Z79.899 Other long term (current) drug therapy; Z87.891 Personal history of nicotine dependence
CPT/HCPCS: 00790; 38570; 49652; 55866; 36415; 80048; 85027; 88305; 88307; 88309; 88331; 93005; 99251; J7120; A4216; G0463; J0744; J2405

== ENCOUNTER → 2020-04-03 10:48 | Outpatient (CLI) | payer MEDICARE, SELFPAY ==
[2020-02-08 06:10] VITALS: BMI 26.2
[2020-04-03 11:39] LABS: PSA,Total- Diagnostic < 0.01 ng/mL (0.0-4.0)
== END ==
PROVIDERS: PCP Internal Medicine; Referring Provider Urology; Visit Provider Urology
DX: C61 Malignant neoplasm of prostate (principal)
CPT/HCPCS: 36415; 84153

== ENCOUNTER → 2020-06-26 14:38 | Outpatient (CLI) | payer MEDICARE, SELFPAY ==
[2020-02-08 06:10] VITALS: BMI 26.2
[2020-06-26 16:54] LABS: PSA,Total- Diagnostic < 0.01 ng/mL (0.0-4.0)
== END ==
PROVIDERS: PCP Internal Medicine; Referring Provider Urology; Visit Provider Urology
DX: C61 Malignant neoplasm of prostate (principal)
CPT/HCPCS: 36415; 84153

== ENCOUNTER 2020-08-23 05:57 | Day surgery (SDC) | payer MEDICARE, SELFPAY ==
[2020-07-13 14:01] VITALS: BMI 27.1
--- NOTE | 2020-08-16 13:13 | EKG12_ITS ---
Test Reason : PREOP Blood Pressure : / mmHG Vent. Rate : 052 BPM Atrial Rate : 052 BPM P-R Int : 172 ms QRS Dur : 120 ms QT Int : 442 ms P-R-T Axes : 045 030 -05 degrees QTc Int : 411 ms Sinus bradycardia Right bundle branch block Abnormal ECG Confirmed by SRAVAN CUMMINGS, DEO ([id number]), story editor MICHAEL MARTÍNEZ ([id number]) on 08/17/2020 11:55:25 AM Referred By: REINA Confirmed By:DEO HINSON MD
[2020-08-23] VITALS (8 sets, daily range): BP systolic 120–146; BP diastolic 68–90; PULSE 50–56; RESP 16–18; TEMP 36.1–37; O2SAT 93–98; BMI 26.6
[2020-08-23] MEDS: Lactated Ringers 1,000 ML 100 ML IV (06:39)
--- NOTE | 2020-08-23 07:00 | HP_ITS ---
Intake Vital Signs 07/13/20 Height 5 ft 6 in 07/13/20 Weight: 168 lb 07/13/20 BMI 27.1 07/13/20 BP 133/72 H 07/13/20 Blood Pressure Location Rt brachial 07/13/20 Position Sitting 07/13/20 Respiration 18 07/13/20 Pulse 59 L 07/13/20 Pulse Source Monitor 07/13/20 Temp 98.4 F 07/13/20 Temp Source Temporal 07/13/20 Pulse Oximetry (%) 95 07/13/20 Oxygen Delivery Method room air Intake Visit Reasons: Umbilical Hernia Chief Complaint: incisional hernia Gift Wrapper Required: No Is patient in pain?: No Allergies No Known Allergies Allergy (Verified 07/13/20 14:02) Medications amlodipine 10 mg tablet 10 mg PO DAILY #90 tab 02/03/20 [Rx Confirmed 07/13/20] PFS Medical History Abnormal electrocardiogram (Acute) Preop cardiovascular exam (Acute) Prostate cancer (Acute) Essential (primary) hypertension (Chronic) Hyperlipidemia (Chronic) Incisional hernia (Acute) Carotid artery calcification (Chronic) Surgical History (Updated 07/13/20 @ 14:01 by Evy Mahoney) History of robot-assisted laparoscopic radical prostatectomy (Acute) H/O wrist surgery (Resolved) History of colonoscopy with polypectomy (Resolved) History of shoulder surgery (Resolved) History of vasectomy (Resolved) Family History Father Cancer prostate Social History (Updated 07/13/20 @ 14:[address] Mehdi Daniel MD) Smoking Status: Former smoker alcohol intake: current substance use type: does not use HPI HPI HPI: JASON VERDUZCO, is a 75 M who presents to the office today for HPI HPI HPI: JASON VERDUZCO, is a 75 M who presents to the office today for Ventral hernia. The patient had a prior robotic prostatectomy and has a bulging at his periumbilical incision site. Patient reports is uncomfortable and growing.Patient reports no radiation of pain. There is nothing that exacerbates or makes it better. ROS General General: No weight change, appetite, fatigue, colon cancer, breast cancer or weakness HEENT HEENT: No difficulty swallowing, eye injury, eye surgery, swollen glands or hoarseness Endo Endocrine: No thyroid disease, diabetes mellitus, thyroid cancer, Hair loss, heat intolerance or cold intolerance Skin Skin: No rash or changing moles Breast Breast: No left breast lump, right breast lump, nipple discharge, breast pain, abnormal mammogram, abnormal US or breast enlargement Musc Musculoskeletal: No back problems, arthritis, rheumatoid arthritis, gout or joint pain Cardio Cardiovascular: No murmur, pacemaker, heart disease, atrial fibrillation, high blood pressure, heart attack, heart stent, palpitations, shortness of breat with exertion or chest pain Psych Psychiatric: No depression, anxiety or hearing voices Resp Respiratory: No shortness of breath, No sleep apnea, No cough, No COPD, No asthma, No emphysema, No wheezing Gastro Gastrointestinal: No abdominal pain, No nausea or vomiting, No diarrhea, No constipation, No blood in stool, No acid reflux, No hemorrhoids, No ulcers, No gallbladder problem, No black,tarry stools Marvel Hematologic: No blood thinners, No blood disorders, No bleeding, No anemia, No blood clots Neuro Neurologic: No system reviewed and no additional complaints, except as docu, No as per HPI, No abnormal walking, No abnormal hearing, No abnormal movements, No abnormal speech, No behavioral changes, No burning sensations, No confusion, No seizure-like activity, No unsteadiness, No dizziness, No localized weakness, No frequent falls, No headache(s), No lack of coordination, No loss of vision, No memory loss, No numbness, No other visual disturbances, No radiating pain, No restless legs, No sensory deficit, No fainting, No tingling, No tremor(s), No weakness, No other Exam Const General: cooperative Orientation: alert, oriented x3 Chest Breast Palpation: No nipple discharge Resp Effort & Inspection: normal respiratory effort Auscultation: clear to auscultation bilaterally Cardio Rate: regular rate Rhythm: regular rhythm Heart Sounds: no murmurs GI Inspection: non-distended Palpation: soft, hernia ventral, nontender Assessment & Plan Problems 1. Incisional hernia, without obstruction or gangrene K43.2 Plan The patient has an incisional ventral hernia at his periumbilical port site. The hernia defect measures approximately 1 to 1-1/2 cm. I discussed repair with him and I discussed open versus laparoscopic approach. I discussed mesh placement. I discussed the risks of the procedure including but not limited to bleeding, infection, injury to underlying organs, and recurrence of hernia. The patient understands the risks and is willing to proceed with open ventral hernia repair with mesh. Mehdi Daniel MD Pager: [facility] [address] [place] [address], [address] [place] [phone] Office: Coding Level of Care Code Off vis,new,level 3 Diagnoses Incisional hernia, without obstruction or gangrene K43.2 ??Obstruction and gangrene presence: without obstruction or gangrene I have re-examined the patient. There are no clinical changes since date of exam.
[2020-08-23] MEDS: Cefazolin 2 GM in 0.9% Normal Saline 100 ML IV (07:23)
--- NOTE | 2020-08-23 07:30 | HERN_PTH ---
PATIENT: JASON VERDUZCO [place] [facility] [place] U#:[id number] AGE/SX: 75/M ROOM: RE08/23/[address]: Dr. Mehdi Daniel MD : 1945 BED: DIS: 08/23/2020 SPEC #: [id number] RECD: 08/23/20 10:37 STATUS: ESTEFANIA REQ #: [id number] CHAI: 08/23/20 07:[address]: Mehdi Daniel DEPT: SURGICAL PATHOLOGY RECD BY: Aleksandra West ENTERED: 08/23/20 12:37 SP TYPE: Hernia OTHR DR: Dr. Anais Flores, DO Tissues: HERNIA Procedures: Surgery Specimen Level II HEADER OPERATION: Open ventral incisional hernia repair with mesh PRE-OP DIAGNOSIS: Incisional hernia TISSUE SUBMITTED: Hernia sac MICROSCOPIC DIAGNOSIS Soft tissue of abdomen, excision: Consistent with hernia sac. AM:reji 08/24/2020 MICROSCOPIC DESCRIPTION Slides are reviewed. GROSS DESCRIPTION Received in fixative is one container labeled with the patient's name and designated hernia sac. The specimen consists of an irregular piece of soft tissue measuring 4.5 x 3 x 0.7 cm. No mass lesion is identified. Human Resources Department Supervisor sections are submitted in one cassette. / SJ:rg 08/23/20 TC:5 CPT: 02754
[2020-08-23] MEDS: Lidocaine 1% (30 ml sdv) 30 ML Vial (08:17)
[2020-08-23] MEDS: Bupiv/Epi 0.25% 30 ML Vial (08:18)
--- NOTE | 2020-08-23 08:26 | PCM.OPRPT ---
Problem List (1) Incisional hernia Status: Resolved Qualifiers: Obstruction and gangrene presence: without obstruction or gangrene Qualified Code(s): K43.2 - Incisional hernia without obstruction or gangrene Report of Operation Date of Procedure: 08/23/20 Pre-Operative Diagnosis: Incisional ventral hernia Post-Operative Diagnosis: Same Surgery/Procedure Performed:: Incisional ventral hernia repair with mesh Specimen's removed: Hernia sac Description of Procedure: Patient was brought back to the operating room and general anesthesia was induced. The abdomen was prepped and draped in usual sterile fashion. The prior incision was injected with local anesthetic and incised using a scalpel. Using electrocautery this was deepened to the hernia sac and the hernia sac was entered. The hernia sac was resected using electrocautery. The fascia was grasped and elevated and a preperitoneal plane was cleared using electrocautery. The peritoneum was reapproximated using a running 3-0 Vicryl suture. The defect was measured and a large ventral Shayan ST mesh was chosen and placed into the preperitoneal space. This was sutured to the anterior fascia using interrupted 0 PDS sutures. The area was irrigated and suctioned dry. The fascia was reapproximated in a horizontal fashion using interrupted 0 PDS sutures. Subcutaneous tissue was irrigated and suctioned dry. The subcutaneous tissue was reapproximated using a running 3-0 Vicryl suture. The skin was closed using a running 3-0 Monocryl suture and Steri-Strips and bandage were applied. Patient was taken to PACU and tolerated the procedure well. Grafts/Implants Used: Large Ventralex ST - Admit VTE Documentation VTE Mechan Device Prophylaxis: SCD's
--- NOTE | 2020-08-23 08:29 | PCM.DC.HER ---
Discharge Diet: Light diet - advance as tolerated Discharge Activity: Return to Normal Activity, May Not Drive - for 2-3 days or while taking narcotic pain meds., May Shower - with the bandage in place 1-2 days after surgery. Lifting Restrictions: 20 pounds for 6 weeks. Additional Activity Instructions:: Climbing stairs is fine, walking is encouraged. Sitting in bed may be uncomfortable. Sitting up using your lateral muscles (sitting up sideways) is usually more comfortable. Do not drive, work heavy equipment of sign legal documents for 24 hours. Pain medications may cause nausea, you should typically eat light foods as you take your pain medications. Pain medications may also cause constipation. If you have difficulty with this, discuss with your doctor. Call your doctor if your incision/area has: Continuous Slow Oozing, Sudden Increased Bleeding, Increased Pain/ Swelling, Increased Redness, Foul Smelling Discharge Call your doctor if you observe: Fever of 101 or Higher Suture Line Care: Avoid Pulling/Pushing, Avoid Pinching/Bending Change Dressing in (Days):: 3 - Leave steri-strips for 1 week. May protect with a guaze bandaid. Cleanse incision/area with: Keep Dressing Clean & Dry Allergies/Adverse Reactions: Allergies No Known Allergies Allergy (Verified 08/23/20 06:17) Medications to take at Discharge amlodipine 10 mg tablet 10 mg PO DAILY #90 tab 02/03/20 Oxycodone HCl/Acetaminophen [Percocet 5-325 mg Tablet] 1 - 2 tab PO Q6H PRN PRN 5 Days #30 tablet 08/23/20 The following prescriptions were given: Oxycodone HCl/Acetaminophen [Percocet 5-325 mg Tablet] 1 - 2 tab PO Q6H PRN PRN 5 Days #30 tablet PRN Reason: Pain Score 4-10/10 Transmission Status: Sent to [facility] Primary Care Physician: Anais Flores DO [Primary Care Provider] - Test Results: Test results from this visit will be discussed in further detail at your follow-up appointment, if applicable. Please Follow Up With: Mehdi Daniel MD When: Please call to schedule 2 week follow up appointment. [phone]
[2020-08-23] MEDS: Acetaminophen 325 MG Tablet PO (09:52)
[2020-08-23] MEDS: oxyCODONE 5 MG Tablet PO (09:52)
== END 2020-08-23 11:36 | disposition home or self-care (01) ==
LOC: SDC 05:58 → AC 05:58
PROVIDERS: PCP Internal Medicine; Referring Provider Surgery; Visit Provider Surgery
PROC: (CPT 49560; principal; 2020-08-23 07:15)
DX: K43.2 Incisional hernia without obstruction or gangrene (principal); I10 Essential (primary) hypertension; E78.5 Hyperlipidemia, unspecified; Z79.899 Other long term (current) drug therapy; Z87.891 Personal history of nicotine dependence
CPT/HCPCS: 00832; 49560; 49568; 88302; 93005; J7120; C1781; J2405

== ENCOUNTER 2020-08-23 22:14 | Emergency (ER) | payer MEDICARE, SELFPAY ==
[2020-08-23 06:18] VITALS: BMI 26.6
[2020-08-23 22:15] VITALS: BP 152/66; PULSE 54; RESP 16; TEMP 36.2; O2SAT 97; BMI 26.6
--- NOTE | 2020-08-23 22:48 | ED.DCSUM_ITS ---
History of Present Illness Chief Complaint: Nausea/Vomiting Informant: Patient Narrative: 75-year-old male presents with concern for nausea and vomiting. Patient states that he had a hernia repair done by Dr. Mickey burks. States that he took a pain medication approximately 8 hours ago. States that he has had 8 episodes of vomiting since. Nonbilious and nonbloody. States he was having chills. Mild abdominal pain. No bowel movement. Past Medical History - Allergies and Home Meds Allergies/Adverse Reactions: Allergies No Known Allergies Allergy (Verified 08/23/20 06:17) Primary Care Physician: Anais Flores DO [Primary Care Provider] - Prior records reviewed: Yes Past Medical History: - - Hypertension, hyperlipidemia, prostate cancer Surgical History: - - prostatectomy, hernia repair Lives: Spouse/ Significant Other Smoking Status: Former smoker Alcohol: None Drugs: None Review of Systems General: Reports: Chills. Denies: Fever, Sweats Eyes: Denies: Visual changes - bilaterally, Diplopia ENT: Denies: Rhinorrhea, Sore throat Cardiovascular: Denies: Chest pain, Palpitations Respiratory: Denies: Dyspnea, Cough, Dyspnea on exertion Gastrointestinal: Reports: Nausea, Vomiting. Denies: Abdominal pain, Diarrhea, Melena, Hematochezia Genitourinary: Denies: Dysuria, Hematuria, Frequency Musculoskeletal: Denies: Back pain, Extremity Pain Skin: Denies: Rash, Wounds Neurological: Denies: Headache, Weakness, Numbness Physical Exam Vital Signs/Narrative: Vital Signs Temp Pulse Resp BP Pulse Ox 08/23/20 22:15 97.2 F L 54 L 16 152/66 H 97 General: Well nourished, Well developed, No Acute Distress Head: Normocephalic, Atraumatic Eyes: Perrl, EOMI ENT: Moist mucous membranes, No rhinorrhea Neck: Supple, Nontender Cardiovascular: Regular rate, Regular rhythm, No murmurs Respiratory: No distress, CTA bilaterally, Chest nontender Abdomen: Soft, Nondistended, Normal bowel sounds, - - Mild tenderness diffusely. No rebound or guarding. Healing incisional wound. Back: Nontender, Normal Inspection Extremities: Nontender, No edema Skin: Normal color, No rash Neurological: Alert, Oriented x3, Cranial nerves II-XII grossly intact, Normal Strength, Normal Sensation Psychological: Normal affect, Normal Mood Diagnostic/Tx/Re-eval Laboratory Data 08/23/20 08/23/20 08/23/20 23:00 23:00 23:05 WBC 12.9 H RBC 4.50 L Hgb 14.0 Hct 41.6 MCV 92.4 MCH 31.1 MCHC 33.7 RDW Std Deviation 44.0 H RDW Coeff of Jose 13.0 Plt Count 220 MPV 11.6 Immature Gran % (Auto) 0.400 Neut % (Auto) 89.6 H Lymph % (Auto) 4.5 L [place] % (Auto) 4.3 Eos % (Auto) 0.9 Baso % (Auto) 0.3 Absolute Neuts (auto) 11.5 H Absolute Lymphs (auto) 0.58 L Nucleated RBC % 0 Sodium 131 L Potassium 4.4 Chloride 99 Carbon Dioxide 27.0 Anion Gap 5 BUN 14 Creatinine 1.01 Estim Creat Clear Calc 58.78 Est GFR (MDRD) Af Amer 93 Est GFR (MDRD) Non-Af 77 BUN/Creatinine Ratio 13.9 Glucose 127 H Calcium 9.4 Total Bilirubin 1.10 H AST 25 ALT 21 Alkaline Phosphatase 76 Total Protein 7.2 Albumin 4.0 Globulin 3.2 Albumin/Globulin Ratio 1.2 Lipase 123 Urine Color Yellow Urine Clarity Clear Urine pH 6.0 Ur Specific [place] 1.015 Urine Protein 30 H Urine Glucose (UA) Normal Urine Ketones Negative Urine Occult Blood Negative Urine Nitrite Negative Urine Bilirubin Negative Urine Urobilinogen Normal Ur Leukocyte Esterase 25 H Urine RBC 0 SEEN Urine WBC 0-5 SEEN Ur Squamous Epith Cells 0-5 SEEN Urine Bacteria 0 SEEN Urine Mucus 2+ - Medical Decision Making Patient appears well and nontoxic. Mild tenderness on palpation of his abdomen which is likely secondary to having surgery this morning. No evidence of peritonitis. Patient was given Toradol, Zofran, fluid bolus. Lab work shows a slight leukocytosis which is secondary to his multiple episodes of vomiting. Patient feeling much improved on reevaluation at 0005. I feel the patient's vomiting was likely secondary to the Percocet. He will be given Zofran at home and will have scheduled Tylenol and ibuprofen for the next 3 days. Asked to keep his appointment with his general surgeon. Asked to return for any increasing pain or uncontrolled vomiting. Patient agreeable and stable time of discharge. Impression: 1. Nausea and vomiting ED Disposition - Plan for ED Patient: Disposition: Home or Assisted Living Instructions: ED Vomiting (Adult) Prescriptions: Ondansetron [Zofran Odt] 4 mg PO Q8H PRN PRN #10 tablet PRN Reason: Nausea Prescription Printed Referrals: Anais Flores DO [Primary Care Provider] - 2 Days Mehdi Daniel MD [STAFF PHYSICIAN] - As Needed Additional Instructions: Please take 1000 mg of Tylenol three times per day whether you are having pain or not. If you do have breakthrough pain while on the Tylenol you can take Ibuprofen 600 mg every 8 hours as needed. Please return for any worsening abdominal pain or uncontrolled vomiting.
[2020-08-23] MEDS: Ondansetron 4 MG/2 ML Vial IV (23:06)
[2020-08-23] MEDS: 0.9% Normal Saline 1,000 ML 1000 ML IV (23:06)
[2020-08-23 23:13] LABS: Bacteria 0 SEEN /hpf (None Seen); Red Blood Cells-Urine 0 SEEN /hpf (0-5)
[2020-08-23 23:16] LABS: Color, Urine Yellow (Yellow); Glucose, Dipstick Normal (Normal); Ketone-Dipstick Negative (Negative); Leukocyte Esterase-Dipstick 25 /ul (Negative); Nitrite-Dipstick Negative (Negative); Occult Blood-Urine Negative /ul (Negative); Protein-Dipstick 30 mg/dl (Negative); Specific Gravity, Urine 1.015 (1.002-1.030); Urine Bilirubin Dipstick Negative (Negative); Urine Clarity Clear (Clear); Urine Urobilinogen Normal (Normal)
[2020-08-23 23:24] LABS: Mucous, Urine 2+ /hpf (<or=2+); Squamous Epithelial Cells - UA 0-5 SEEN /hpf (0-5); White Blood Cells 0-5 SEEN /hpf (0-5)
[2020-08-23 23:32] LABS: Absolute Lymphocyte Count 0.58 X10^3/uL (0.83-4.51); Absolute Neutrophil Count 11.5 X10^3/uL (2.0-7.7); Basophil# 0.04 X10^3/uL; Basophil% 0.3 % (0-1); Eosinophil# 0.12 X10^3/uL; Eosinophils% 0.9 % (0-5); Hematocrit 41.6 % (40-54); Lymphocyte # 0.58 X10^3/ul (0.83-4.51); Lymphocyte % 4.5 % (19-41); Mean Corp Hgb Conc 33.7 g/dL (32-36); Mean Corpuscular Hgb 31.1 pg (27.0-32.0); Mean Corpuscular Volume 92.4 fL (80-94); Mean Platelet Vol. 11.6 fl (6.2-12.0); Monocyte# 0.55 X10^3/uL; Monocyte% 4.3 % (0-10); NRBC Flagged by Analyzer 0 % (0-5); Neutrophil # 11.51 X10^3/uL (2.7-7.7); Neutrophil % 89.6 % (47-70); POSITIVE COUNT YES; POSITIVE DIFFERENTIAL YES; Platelet Count 220 K/mm3 (150-450); White Blood Count 12.9 K/mm3 (4.4-11.0)
[2020-08-23 23:45] LABS: Differential Indicated SCAN CRITERIA MET
[2020-08-23 23:50] LABS: ALB/GLOB Ratio 1.2 RATIO (0.9-2.4); AST(SGOT) 25 U/L (15-37); Alanine Aminotransfer ALT/SGPT 21 U/L (16-61); Alkaline Phosphatase 76 U/L (45-117); Anion Gap 5 (5-15); BUN 14 mg/dL (7-18); BUN/Creat Ratio 13.9 RATIO (10-20); Calcium,Total 9.4 mg/dL (8.5-10.1); Chloride 99 mmol/L (98-107); Creatinine, Serum 1.01 mg/dL (0.70-1.30); EST Glomerular Filtration Rate 77 mL/min (>60); Est Glom Filt Rate - Afr Amer 93 mL/min (>60); Estimated Creatinine Clearance 58.78 ml/min; Globulin 3.2 g/dL (2.2-4.2); Glucose 127 mg/dL (74-106); Lipase 123 U/L (73-393); Potassium 4.4 mmol/L (3.5-5.1); Protein, Total 7.2 g/dL (6.4-8.2); Sodium Level 131 mmol/L (136-145)
[2020-08-23] MEDS: Ketorolac 15 MG/ML Vial IV (23:53)
[2020-08-24 00:35] VITALS: BP 106/55; PULSE 56; RESP 16
== END 2020-08-24 00:36 | disposition home or self-care (01) ==
PROVIDERS: Emergency Provider Emergency Medicine; PCP Internal Medicine
DX: R11.2 Nausea with vomiting, unspecified (principal); I10 Essential (primary) hypertension; Z79.899 Other long term (current) drug therapy; Z87.891 Personal history of nicotine dependence
CPT/HCPCS: 80053; 81001; 83690; 85025; 96361; 96374; 96375; 99285; J7030; A4216; J2405

== ENCOUNTER → 2022-08-07 | Outpatient (CLI) | payer MEDICARE, SELFPAY ==
--- NOTE | 2022-08-07 07:55 | CT_ITS ---
STUDY: CT SOFT TISSUE NECK WITH CONTRAST REASON FOR EXAM: Male, 77 years old. One and half month history of right-sided neck mass. RADIATION DOSAGE (If Supplied By Facility): CTDIvol = ( 18.01 ) mGy, DLP = ( 566.86 ) mGycm TECHNIQUE: The patient was scanned in a multi-detector CT scanner. High resolution transaxial imaging was performed following intravenous administration of IV 100mL Isovue-300. Sagittal and coronal images were reconstructed. Individualized dose optimization techniques were used for this CT. COMPARISON: None. FINDINGS: Diffuse enlargement of the right parotid gland with mild increased markings in the surrounding fat. Pancreatitis should be ruled out. Normal bilateral freight caller spaces. Normal bilateral parapharyngeal spaces. Normal bilateral carotid spaces. Normal bilateral sublingual and submandibular glands and spaces. Normal visualized nasopharynx. Normal retropharyngeal space. Normal perivertebral space. Normal visualized bilateral faucial tonsils. The visualized tongue, tongue base and oropharynx are normal. There are minimally enlarged lymph nodes of the neck, with preservation of normal hever architecture, consistent with a reactive lymph hyperplasia. There is no demonstrated solid or cystic mass lesion. There is no abnormal contrast enhancement. Normal epiglottis, bilateral vallecula and hypopharynx. The pre-epiglottic and paraglottic adipose spaces are normal. Normal visualized bilateral piriform sinuses, aryepiglottic folds, vocal cords, and arytenoid-cricoid articulations. Normal subglottic trachea. Normal bilateral lobes of the thyroid gland. Normal visualized pulmonary apices. Normal visualized paranasal sinuses. Normal visualized cervical spine. CT/Soft Tissue Neck WITH Contrast IMPRESSION: Diffuse nonspecific enlargement of the right parotid gland. Mild increased markings in the surrounding peritoneal fat. Peritendinitis of the Julio. There is a 1.2 cm x 1.3 cm polyp or mucosal retention cyst at the base of the left maxillary sinus. Electronically Signed: Myke Calero MD at 14:50 EDT ,
--- NOTE | 2022-08-07 08:16 | CDU_ITS ---
Reason For Study: Carotid artery calcification, bilateral Rt. Velocities/BP Lt. Velocities/BP Prox CCA 83.4/16.3 cm/sec. Prox CCA 66.3/11.3 cm/sec. Mid CCA 84.4/19.2 cm/sec. Mid CCA 83.9/16.8 cm/sec. Dist CCA 81.5/15.4 cm/sec. Dist CCA 64.1/12.4 cm/sec. Prox ICA 66.7/15.1 cm/sec. Prox ICA 91.2/18.8 cm/sec. Mid ICA 77.7/22.5 cm/sec. Mid ICA 76.5/20 cm/sec. Dist ICA 88.8/31.1 cm/sec. Dist ICA 76.5/18.8 cm/sec. Rt. ICA/CCA = 1.06. Lt. ICA/CCA = 1.38. Prox ECA 128/13.8 cm/sec. Prox ECA 128.4/7.9 cm/sec. Rt. Vert. 42.1/12.6 cm/sec. Lt. Vert. 70.4/20 cm/sec. Right Extracranial There is homogeneous, smooth atherosclerotic plaque noted in the right common carotid artery. There is homogeneous, irregular atherosclerotic plaque noted in the right internal carotid artery. There is heterogeneous, irregular atherosclerotic plaque noted in the right external carotid artery. Antegrade flow is noted in the right vertebral artery. Left Extracranial There is homogeneous, smooth atherosclerotic plaque noted in the left common carotid artery. There is homogeneous, smooth atherosclerotic plaque noted in the left internal carotid artery. There is homogeneous, smooth atherosclerotic plaque noted in the left external carotid artery. Antegrade flow is noted in the left vertebral artery. Procedure Carotid Duplex 15953. This is a Carotid Duplex examination using B-mode, color flow and specral Doppler. Exam performed in department. VL/Carotid Duplex Ultrasound Interpretation Summary Mild (<50%) stenosis right extracranial internal carotid. Mild (<50%) stenosis left extracranial internal carotid. Patent and antegrade vertebrals bilaterally. Ordering Physician: Anais Flores Referring Physician: Anais Flores Performed By: Meredith Sepulveda RVT
[2022-08-07 08:30] LABS: CREATININE FINGERSTICK 1.1 mg/dL (0.70-1.30); EGFR FINGERSTICK > 60.0000 mL/min (>60)
== END | disposition home or self-care (01) ==
LOC: CT 07:50
PROVIDERS: PCP Internal Medicine; Referring Provider Internal Medicine; Visit Provider Internal Medicine
DX: R22.1 Localized swelling, mass and lump, neck (principal); I65.23 Occlusion and stenosis of bilateral carotid arteries
CPT/HCPCS: 70491; 93880; Q9967

== ENCOUNTER → 2023-10-14 | Outpatient (CLI) | payer MEDICARE, SELFPAY ==
--- NOTE | 2023-10-14 14:02 | CDU_ITS ---
Reason For Study: Carotid stenosis Rt. Velocities/BP Lt. Velocities/BP Prox CCA 103.6/16.8 cm/sec. Prox CCA 104.7/16.3 cm/sec. Mid CCA 99.2/15.7 cm/sec. Mid CCA 112.1/13.9 cm/sec. Dist CCA 83.9/13.5 cm/sec. Dist CCA 76.5/13.9 cm/sec. Prox ICA 67.4/13.5 cm/sec. Prox ICA 92.5/15.1 cm/sec. Mid ICA 91.6/23.4 cm/sec. Mid ICA 90/21.2 cm/sec. Dist ICA 113.8/27.9 cm/sec. Dist ICA 114.6/29.8 cm/sec. Rt. ICA/CCA = 1.15. Lt. ICA/CCA = 1.02. Prox ECA 133.2/6 cm/sec. Prox ECA 125.2/8.7 cm/sec. Rt. Vert. 52.2/13.5 cm/sec. Lt. Vert. 69.1/16.3 cm/sec. Right Extracranial There is homogeneous, smooth atherosclerotic plaque noted in the right common carotid artery. There is heterogeneous, irregular atherosclerotic plaque noted in the right internal carotid artery. There is heterogeneous, irregular atherosclerotic plaque noted in the right external carotid artery. Antegrade flow is noted in the right vertebral artery. Left Extracranial There is homogeneous, smooth atherosclerotic plaque noted in the left common carotid artery. There is homogeneous, smooth atherosclerotic plaque noted in the left internal carotid artery. There is homogeneous, smooth atherosclerotic plaque noted in the left external carotid artery. Antegrade flow is noted in the left vertebral artery. Procedure This is a Carotid Duplex examination using B-mode, color flow and specral Doppler. Carotid Duplex [id number]. Exam performed in department. VL/Carotid Duplex Ultrasound Interpretation Summary Mild (<50%) stenosis right extracranial internal carotid. Mild (<50%) stenosis left extracranial internal carotid. Patent and antegrade vertebrals bilaterally. Ordering Physician: Anais Flores Referring Physician: Anais Flores M.D. Performed By: Meredith Sepulveda RVT
== END | disposition home or self-care (01) ==
PROVIDERS: PCP Internal Medicine; Referring Provider Internal Medicine; Visit Provider Internal Medicine
DX: I65.23 Occlusion and stenosis of bilateral carotid arteries (principal)
CPT/HCPCS: 93880